=== PATIENT | male | born 1985 | race African-American/Black ===

== ENCOUNTER 2021-03-21 18:04 | Observation (INO) | payer SELFPAY ==
[2021-03-21] MEDS ORDERED: Morphine 4 MG/ML VIAL ONE (18:53)
[2021-03-21 18:59] LABS: #Lymphocytes 1.8 thou/uL (1.20-3.40); #Monocytes 0.6 thou/uL (0.11-0.59); %Basophils 0.1 % (0.0-1.0); %Eosinophils 0.4 % (0.0-10.0); %Lymphocytes 18.9 % (21.0-51.0); %Monocytes 6.7 % (0.0-10.0); %Neutrophils 73.9 % (42.0-75.0); Hemoglobin 14.9 g/dL (14.0-18.0); Mean Corpuscular HGB CONC 35.9 g/dL (32.0-36.0); Mean Corpuscular Hemoglobin 32.5 pg (27.0-31.0); Mean Corpuscular Volume 90.5 fL (78.0-98.0); Mean Platelet Volume 7.3 fL (7.4-10.4); Platelet Count 265 thou/uL (130-400); RBC Distribution Width 11.9 % (11.5-14.5); Red Blood Cell (RBC) Count 4.57 mill/uL (4.70-6.10); White Blood Cell (WBC) Count 9.5 thou/uL (4.8-10.8)
[2021-03-21 19:13] LABS: ALT (SGPT) 28 U/L (8-55); AST (SGOT) 24 U/L (5-34); Albumin 4.7 g/dL (3.5-5.0); Alkaline Phosphatase 53 U/L (40-110); Anion Gap 20 mmol/L (10-20); BUN (Urea Nitrogen) 15 mg/dL (8.9-20.6); Bilirubin, Total 0.9 mg/dL (0.2-1.2); Calc. Creatinine Clearance 0 mL/min (70-130); Calcium 10.2 mg/dL (7.8-10.44); Carbon Dioxide 17 mmol/L (22-29); Chloride 104 mmol/L (98-107); Globulin 3.7 g/dL (2.4-3.5); Glucose 106 mg/dL (70-105); Lipase 36 U/L (8-78); Potassium 3.6 mmol/L (3.5-5.1); Protein, Total 8.4 g/dL (6.0-8.3); Sodium 137 mmol/L (136-145)
[2021-03-21 19:33] LABS: CKMB 2.3 ng/mL (0-6.6)
[2021-03-21] MEDS ORDERED: Aspirin Chewable 81 MG TAB ONE ×2 (19:54→19:59)
[2021-03-21] MEDS ORDERED: Enoxaparin Sodium 40 MG/0.4 ML SYRINGE ONE (19:59)
[2021-03-21] MEDS ORDERED: Enoxaparin Sodium 100 MG/ML SYRINGE ONE ×2 (19:59→20:08)
[2021-03-21] MEDS ORDERED: Enoxaparin Sodium 80 MG/0.8 ML SYRINGE ONE (20:08)
[2021-03-21] MEDS ORDERED: Enoxaparin Sodium 80 MG/0.8 ML SYRINGE SC SCH (20:15)
[2021-03-21] MEDS ORDERED: Enoxaparin Sodium 100 MG/ML SYRINGE SC SCH (20:15)
[2021-03-21 22:00] LABS: Troponin I 0.146 ng/mL (< 0.028)
[2021-03-22] MEDS ORDERED: Morphine 2 MG/ML VIAL SLOW IVP PRN (00:24)
[2021-03-22 01:10] VITALS: BMI 52.7
[2021-03-22] MEDS ORDERED: hydrALAZINE 20 MG/ML VIAL SLOW IVP PRN (01:20)
[2021-03-22] MEDS ORDERED: Sodium Chloride 0.9% 1,000 ML IV SCH (01:30)
[2021-03-22 02:13] LABS: Troponin I 0.113 ng/mL (< 0.028)
[2021-03-22] MEDS ORDERED: Ondansetron PF 4 MG/2 ML Vial IVP PRN (03:04)
[2021-03-22] MEDS ORDERED: Acetaminophen 325 MG TAB PO PRN (03:04)
[2021-03-22] MEDS ORDERED: Ondansetron ODT 4 MG TAB PO PRN (03:04)
[2021-03-22] MEDS: Sodium Chloride 0.9% 1,000 ML IV SCH ×2 (03:26→14:52)
[2021-03-22 04:23] LABS: #Lymphocytes 2.5 thou/uL (1.20-3.40); #Monocytes 0.8 thou/uL (0.11-0.59); #Neutrophils 4.9 thou/uL (1.40-6.50); %Basophils 0.2 % (0.0-1.0); %Eosinophils 0.4 % (0.0-10.0); %Lymphocytes 30.3 % (21.0-51.0); %Neutrophils 59.1 % (42.0-75.0); Hemoglobin 13.1 g/dL (14.0-18.0); Mean Corpuscular HGB CONC 35.5 g/dL (32.0-36.0); Mean Corpuscular Hemoglobin 32.4 pg (27.0-31.0); Mean Corpuscular Volume 91.1 fL (78.0-98.0); Platelet Count 253 thou/uL (130-400); RBC Distribution Width 11.9 % (11.5-14.5); Red Blood Cell (RBC) Count 4.05 mill/uL (4.70-6.10); White Blood Cell (WBC) Count 8.3 thou/uL (4.8-10.8)
[2021-03-22 04:30] LABS: Hemoglobin A1c 4.9 % (4.0-6.0)
[2021-03-22 04:45] LABS: Anion Gap 12 mmol/L (10-20); BUN (Urea Nitrogen) 14 mg/dL (8.9-20.6); Calc. Creatinine Clearance 207 mL/min (70-130); Calcium 9.1 mg/dL (7.8-10.44); Carbon Dioxide 22 mmol/L (22-29); Chloride 106 mmol/L (98-107); Glucose 87 mg/dL (70-105); Potassium 3.5 mmol/L (3.5-5.1); Sodium 136 mmol/L (136-145)
[2021-03-22] MEDS ORDERED: Propranolol HCl LA 60 MG CAP PO SCH (09:00)
[2021-03-22] MEDS ORDERED: Enoxaparin Sodium 40 MG/0.4 ML SYRINGE SC SCH (09:00)
[2021-03-22] MEDS ORDERED: Amlodipine 10 MG TAB PO SCH (09:00)
[2021-03-22] MEDS ORDERED: Enoxaparin Sodium 100 MG/ML SYRINGE SC SCH (09:00)
[2021-03-22] MEDS ORDERED: Losartan 25 MG TAB PO SCH (09:00)
[2021-03-22 09:36] LABS: Hemoglobin 13.6 g/dL (14.0-18.0); Platelet Count 257 thou/uL (130-400)
[2021-03-22 09:54] LABS: Calc. Creatinine Clearance 230 mL/min (70-130)
[2021-03-22 15:00] VITALS: BP 140/73; TEMP 98
[2021-03-22 20:58] LABS: SARS-CoV-2 PCR by NAA Not Detected (NotDetected)
[2021-03-22] MEDS ORDERED: Doxazosin 2 MG TAB PO SCH (21:00)
[2021-03-22] MEDS ORDERED: Prevnar 13-Val Conj/PF 0.5 ML SYRINGE IM ONE (21:00)
== END 2021-03-22 17:20 | disposition home or self-care (01) ==
LOC: ERS 18:04 → 2NO 20:50
PROVIDERS: ADMIT Student in an Organized Health Care Education/Training Program; ATTEND Family Medicine
DX: R07.89 Other chest pain (principal); N17.9 Acute kidney failure, unspecified; E86.0 Dehydration; I10 Essential (primary) hypertension; R16.0 Hepatomegaly, not elsewhere classified; F17.200 Nicotine dependence, unspecified, uncomplicated; E66.01 Morbid (severe) obesity due to excess calories; Z68.43 Body mass index [BMI] 50.0-59.9, adult; Z20.822 Contact with and (suspected) exposure to COVID-19; Z88.5 Allergy status to narcotic agent; Z79.51 Long term (current) use of inhaled steroids; Z79.899 Other long term (current) drug therapy; Z87.19 Personal history of other diseases of the digestive system
CPT/HCPCS: 36415; 71045; 74018; 76705; 78452; 80048; 80053; 82553; 83036; 83690; 84484; 85025; 93005; 93017; 96372; 96374; 96376; A9500; G0378; J1650; J2270; J7050; U0003; U0005